=== PATIENT | male | born 1930 | race Caucasian/White ===

== ENCOUNTER 2016-05-19 20:40 | Emergency (ER) | payer MEDICARE, OTHER ==
[~2016-05-19] VITALS: Ht 172.7 cm; Wt 75.0 kg
[~2016-05-19 20:40] MED LIST: ASPI-973 PO; ATOR20TA65 PO; CHOL200047 PO; CYAN10008 PO; DOCU-41 PO; ESOM40CA41 PO; HYDR-3089 PO; LOSA50TA37 PO
[2016-05-19 20:57] VITALS: BP 184/89; PULSE 81; RESP 20; O2SAT 97
[2016-05-19 22:52] LABS: EOSINOPHILS % (AUTO) 2.8 % (0-5); MONOCYTES % (AUTO) 10.1 % (4-12); Mean Corpuscular Hemoglobin 31.7 pg (27.0-35.0); Mean Corpuscular Volume 90.8 fL (81-100); NEUTROPHILS % (AUTO) 76.7 % (40-74); Platelet Count 167 bil/L (150-400)
[2016-05-19 23:11] LABS: Magnesium 2.1 mg/dL (1.6-2.6)
--- NOTE | 2016-05-19 23:12 | ED.REPORT ---
HPI-General Illness Date of Service May 19, 2016 ED Provider: Melecio Barragan MD Pt is an 86 y/o male w/ a hx of HTN, CVA, profound neuropathy, CHF, presenting to the ED c/o myalgias onset yesterday. He c/o associated abdominal pain, fatigue, generalized weakness, constipation. Pt denies dysuria, vomiting, diarrhea, change in cough, LUTZ, sore throat, rhinorrhea. Fever is unknown. Nursing Notes Stated Complaint: WHOLE BODY ACHES Chief Complaint: FLU/Cold Symptoms Nursing Notes Reviewed: Yes Allergies: Coded Allergies: No Known Allergies (Verified Allergy, Unknown, 08/23/15) Scheduled Aspirin (Aspirin) 81 Mg Tablet 81 MG PO DAILY Atorvastatin Calcium (Atorvastatin Calcium) 20 Mg Tablet 20 MG PO DAILY Cholecalciferol (Vitamin D3) (Vitamin D3) 2,000 Unit Capsule 2,000 UNIT PO DAILY Cyanocobalamin (Vitamin B-12) (Vitamin B-12) 1,000 Mcg Tablet 1,000 MCG PO DAILY Losartan Potassium (Losartan Potassium) 50 Mg Tablet 50 MG PO DAILY Scheduled PRN Docusate Sodium (Colace) 100 Mg Capsule 100 MG PO BID PRN PRN For Constipation Esomeprazole Magnesium (Nexium) 40 Mg Capsule.dr 40 MG PO DAILYAC PRN PRN For Dyspepsia or Heartburn Hydrocodone-Acetaminophen 10-300 mg (Hydrocodone-Acetaminophen 10-300 mg) 1 Each Tablet 1-2 TABLET PO Q6H PRN PRN For Pain General Time Seen by MD: 23:09 Chief Complaint Other (myalgias) Hx Obtained From: Patient Arrived By: Walk-in Sudden in Onset?: No Onset Occurred: 1 day ago Symptom Duration: Since onset Quality: Aching (whole body) Severity: Current: Mild Severity: Maximum: Mild Past Medical History Past Medical History 1. Hypertension. 2. CVA/stroke. 3. Gout. 4. Profound neuropathy. 5. CHF Past Surgical History TURP Back surgery L shoulder surgery Smoking History Former Smoker Social History Alcohol Use: Denies alcohol use Drug Use: Denies drug use Other Social History: Ambulatory Status Independent Review of Systems Full Review of Systems Constitutional: Reports: Fatigue, Weakness - generalized Ears / Nose / Throat: Denies: Nasal congestion, Sore throat Respiratory: Denies: Non-productive cough, Shortness of breath GI: Reports: Abdominal pain, Nausea, Denies: Diarrhea, Vomiting Male: Denies Dysuria, Denies Hematuria Musculoskeletal: Reports: Myalgia, Denies: Joint swelling Complete sys rev & neg: except as marked. Physical Exam Vital Signs Vital Signs Date Time Temp Pulse Resp B/P Pulse Ox O2 Delivery O2 Flow Rate FiO2 05/20/16 01:24 37.2 75 18 145/77 94 Room Air 05/19/16 20:57 38.7 81 20 184/89 97 Room Air Initial VS: Reviewed, Vital signs abnormal Head / Eyes: Atraumatic, Normocephalic, PERRL ENT: Mucous membranes moist, Conjunctiva normal, No scleral icterus Neck: Supple, Full range of motion Respiratory: Breath sounds normal, Clear to auscultation, No respiratory distress Cardiovascular: Regular rate & rhythm, Heart sounds normal, Intact distal pulses Extremities: Vascular intact, Neuro intact, No swelling, No tenderness Skin: Warm, Dry, No cyanosis Neurologic: Alert, Oriented, Nonfocal Psychiatric: Mood/affect normal, Behavior normal, Normal thought content General/Constitutional: Awake, Alert, No acute distress, Cooperative, Not toxic appearing Abdomen: Atraumatic, Soft, No guarding, No rebound, No distention, No palpable mass Tenderness/Guarding/Rebound: Positive: Tender LLQ... (Mild) Interpretation & Diagnostics Lab Results Interpretation Result Diagram: 05/19/16223905/19/162239 Test 05/19/16 22:40 White Blood Count 8.1th/mm3 (3.8-10.1) Red Blood Count 4.36mil/mm3 (4.40-5.80) Hemoglobin 13.8g/dL (13.8-17.2) Hematocrit 39.6% (41.0-50.0) Mean Corpuscular Volume 90.8fL (81-100) Mean Corpuscular Hemoglobin 31.7pg (27.0-35.0) Mean Corpuscular Hemoglobin Concent 34.8% (32.0-37.0) Red Cell Distribution Width 12.0% (12.3-15.4) Platelet Count 167bil/L (150-400) Neutrophils (%) (Auto) 76.7% (40-74) Lymphocytes (%) (Auto) 9.3% (14-46) Monocytes (%) (Auto) 10.1% (4-12) Eosinophils (%) (Auto) 2.8% (0-5) Basophils (%) (Auto) 1.0% (0-3) Sodium Level 137mEq/L (134-144) Potassium Level 4.3mEq/L (3.5-5.2) Chloride Level 101mEq/L (97-108) Carbon Dioxide Level 22mmol/L (18-29) Blood Urea Nitrogen 18mg/dL (8-27) Creatinine 1.29mg/dL (0.76-1.27) Estimat Glomerular Filtration Rate 56mL/min (>59) Glucose Level 137mg/dL (60-99) Calcium Level 8.5mg/dL (8.5-10.1) Magnesium Level 2.1mg/dL (1.6-2.6) Total Bilirubin 0.3mg/dL (0.0-1.2) Aspartate Amino Transf (AST/SGOT) 22U/L (0-50) Alanine Aminotransferase (ALT/SGPT) 14U/L (0-44) Alkaline Phosphatase 106U/L (25-160) Total Protein 6.9g/dL (6.4-8.4) Albumin 4.2g/dL (3.4-5.0) Hold Bradford Top Tube Received (Received) CT Abd / Pelvis Interpretation Conclusion: 1. No evidence of colitis. 2. Wall thickening or pericholecystic fluid at the gallbladder fundus. The gallbladder is incompletely distended. Ultrasound as clinically indicated. Radiologist: Cornelius Rose, [id number] Study type: Abdominal CT IV contrast Interpretation / Wet Read by: Interpret - Radiologist Re-Eval/Medical Decision Med Decision/Clinical Course 86-year-old male history of neuropathy, hypertension, CHF presenting with diffuse muscle aches times one day. Vital signs are stable. Fever. Exam is benign other than mild left lower abdominal tenderness. CT abdomen and pelvis showed no acute LLQ pathology. Labs are stable. Patient's abdominal pain resolved while he was here. Possibly viral syndrome. We will discharge home with return precautions. Time of Eval: 00:59 Patient Status: Condition improved, Moderate relief, Pain improved Evaluation: Abdomen soft/non-tender Re-Evaluation/Progress Note: Pt rechecked. Informed pt of plan for treatment. Pt understands and agrees with plan for treatment. F/U instructions and RTER warnings given. All questions addressed. Counseled Regarding: Diagnosis, Lab results, Need for follow-up, When/why to return to ED Discharge & Departure Primary Impression: Viral syndrome Additional Impressions: Abdominal pain Abdominal location: unspecified location Qualified Code: R10.9 - Unspecified abdominal pain Constipation Constipation type: unspecified constipation type Qualified Code: K59.00 - Constipation, unspecified Disposition: Home Discharge Condition All VS Reviewed: Yes Condition: Stable Patient Instructions: Acute Abdominal Pain (ED) Additional Instructions: Your CT scan was normal today. Your labs were also normal. This rules out all dangerous causes for your symptoms. You likely have a virus which is causing them. You should feel better in a few days. Return to the emergency department for high fever, severe pain, persistent vomiting, or for other concerning symptoms. Follow-up with your doctor Saturday or Saturday. Referrals: [facility] Residency Clinic (PCP) Scribe Attestation Portions of this note were transcribed by Camilo Lennon. I, Dr. Barragan, personally performed the history, physical exam and medical decision-making; I reviewed and confirmed the accuracy of the information in the transcribed note. Signed by Roberto Carlos Jimenez, 05/19/16 - [id number] copies to: [facility] Res[facility] Melecio Barragan MD May 19, 2016 23:12 CAMILO LENNON May 19, 2016 23:22
[2016-05-19] MEDS ORDERED: Ondansetron 2 mg/mL 2 mL Inj IVPUSH PRN (23:25)
[2016-05-20 01:24] VITALS: BP 145/77; PULSE 75; RESP 18; O2SAT 94
--- NOTE | 2016-05-20 08:04 | DRSVH ---
PROCEDURE: CT ABDOMEN AND PELVIS WITH CONTRAST ([id number]) INDICATIONS: LLQ pain TECHNIQUE: After the administration of intravenous contrast, 5 mm thick sections acquired from the diaphragm to the symphysis. 5 mm coronal and sagittal reformats were acquired. For radiation dose reduction, the following was used: automated exposure control, adjustment of mA and/or kV according to patient rolan frausto. COMPARISON: [facility], CT, CT ABD PELVIS W CON, 09/20/2015, 10:58. FINDINGS: Image quality: Excellent. ABDOMEN: Lung bases: Lung bases are clear. Heart size is normal. Solid organs: Liver and spleen are normal in size and enhancement. There is soft tissue thickening o f the distal gallbladder fundus which is new when compared with the study dated 09/20/15. Of note, the gallbladder is partially contracted on the current study. Biliary system is non dilated. Pancreas e nhances normally. No adrenal nodules. Kidneys demonstrate normal size and enhancement, without hydr onephrosis. Subcentimeter low density lesions are present within the right renal cortex which are inc ompletely characterized but may represent simple renal cysts. Peritoneum and bowel: Bowel loops demonstrate normal wall thickness and caliber. The appendix is thi n walled and gas filled. No free fluid or air. Nodes and vessels: No retroperitoneal or mesenteric adenopathy by size criteria. Aorta and inferior vena cava are normal in size. There are scattered atheromatous calcifications throughout the aorta and iliac arteries bilaterally. Miscellaneous: No ventral hernias. PELVIS: Genitourinary: Bladder wall thickness is normal. Miscellaneous: No inguinal hernias or adenopathy. Bones: No suspicious bony lesions. No vertebral body compression fractures. There is ankylosis of the thoracolumbar spine. Posterior fixation hardware is intact. IMPRESSION: 1. No acute intra-abdominal findings. Normal appendix. 2. Focal wall thickening of the distal gallbladder fundus. This is a new finding when compared with t he prior study. Acute cholecystitis a neoplasm cannot be excluded. Right upper quadrant ultrasound re commended. These findings are concordant with the overnight interpretation. Dictated by: Miriam Gerardo M.D. on 05/20/2016 at 7:56 Approved by: Miriam Gerardo M.D. on 05/20/2016 at 8:03
== END 2016-05-20 01:26 | disposition home or self-care (01) ==
LOC: SED 20:40
DX: K59.00 Constipation, unspecified (principal); B34.9 Viral infection, unspecified; I10 Essential (primary) hypertension; G62.9 Polyneuropathy, unspecified; I50.9 Heart failure, unspecified; Z87.891 Personal history of nicotine dependence; Z87.39 Personal history of other diseases of the musculoskeletal system and connective tissue; Z86.73 Personal history of transient ischemic attack (TIA), and cerebral infarction without residual deficits; Z79.82 Long term (current) use of aspirin
CPT/HCPCS: 36415; 74177; 80053; 83735; 85025; 96374; 96375; 99284; J2270; J2405; Q9967

== ENCOUNTER 2016-07-02 23:25 | Emergency (ER) | payer MEDICARE, OTHER ==
[~2016-07-02] VITALS: Ht 172.7 cm; Wt 72.7 kg
[2016-07-02 23:30] VITALS: BP 218/87; PULSE 68; RESP 18; O2SAT 97
[2016-07-02 23:49] VITALS: BP 173/88; PULSE 65; RESP 14; O2SAT 98
--- NOTE | 2016-07-02 23:58 | ED.REPORT ---
HPI-General Illness Date of Service Jul 02, 2016 ED Provider: Bonnie Frank MD 86 y/o male with a hx of hypertension, congestive heart failure, and GERD presents to the ED after he recorded a high blood pressure of 218 systolic tonight. Patient states that he generally feels unwell, with some abdominal discomfort. He reports experiencing severe heartburn earlier today, which improved after taking two Nexium tablets. He also complains of nausea but denies vomiting,diarrhea, chest pain, back pain, shoulder pain, and headache. Pt has chronic constipation. He had a bowel movement this morning after taking two Dulcolax tablets. He takes Losartan for his blood pressure. Nursing Notes Stated Complaint: HIGH BLOOD PRESSURE Chief Complaint: General Complaint Nursing Notes Reviewed: Yes Allergies: Coded Allergies: No Known Allergies (Verified Allergy, Unknown, 07/02/16) Scheduled Aspirin (Aspirin) 81 Mg Tablet 81 MG PO DAILY Atorvastatin Calcium (Atorvastatin Calcium) 20 Mg Tablet 20 MG PO DAILY Cholecalciferol (Vitamin D3) (Vitamin D3) 2,000 Unit Capsule 2,000 UNIT PO DAILY Cyanocobalamin (Vitamin B-12) (Vitamin B-12) 1,000 Mcg Tablet 1,000 MCG PO DAILY Losartan Potassium (Losartan Potassium) 50 Mg Tablet 50 MG PO DAILY Scheduled PRN Docusate Sodium (Colace) 100 Mg Capsule 100 MG PO BID PRN PRN For Constipation Esomeprazole Magnesium (Nexium) 40 Mg Capsule.dr 40 MG PO DAILYAC PRN PRN For Dyspepsia or Heartburn Hydrocodone-Acetaminophen 10-300 mg (Hydrocodone-Acetaminophen 10-300 mg) 1 Each Tablet 1-2 TABLET PO Q6H PRN PRN For Pain General Time Seen by MD: 23:57 Chief Complaint Other (High BP) Hx Obtained From: Spouse Arrived By: Walk-in Sudden in Onset?: Yes Onset Occurred: 21 - 23 hours ago Symptom Duration: Since onset Severity: Current: No pain currently Severity: Maximum: No pain Recent Healthcare: No recent doctor visit, No recent hospitalization Similar Sx Previous: No Past Medical History Past Medical History 1. Hypertension. 2. CVA/stroke. 3. Gout. 4. Profound neuropathy. 5. CHF Reports: GERD Past Surgical History TURP Back surgery L shoulder surgery Smoking History Former Smoker Social History Alcohol Use: Denies alcohol use Drug Use: Denies drug use Other Social History: Ambulatory Status Independent Review of Systems Full Review of Systems Constitutional: Reports: Malaise Cardiovascular: Denies: Chest pain GI: Reports: Abdominal pain, Constipation, Nausea, Denies: Diarrhea, Vomiting Male: Denies Dysuria Musculoskeletal: Denies: Back pain, Joint pain Neurologic: Denies: Headache Complete sys rev & neg: except as marked. Physical Exam Vital Signs Vital Signs Date Time Temp Pulse Resp B/P Pulse Ox O2 Delivery O2 Flow Rate FiO2 07/03/16 02:50 36.6 61 15 148/69 96 Room Air 07/03/16 02:13 61 11 167/75 98 Room Air 07/03/16 01:18 60 24 163/64 100 Room Air 07/02/16 23:49 65 14 173/88 98 Room Air 07/02/16 23:30 36.1 68 18 218/87 97 Room Air Initial VS: Reviewed, Vital signs abnormal Head / Eyes: Atraumatic, Normocephalic, PERRL ENT: Mucous membranes moist, Conjunctiva normal, No scleral icterus Neck: Supple, Non-tender, Full range of motion Respiratory: Breath sounds normal, Clear to auscultation, No respiratory distress Cardiovascular: Regular rate & rhythm, Heart sounds normal Abdomen / GI: Soft, Non-tender, No guarding, No rebound Skin: Warm, Dry, No cyanosis Neurologic: Alert, Oriented, Nonfocal Psychiatric: Mood/affect normal, Behavior normal, Normal thought content General/Constitutional: Awake, Alert, Cooperative Lower Extremity / Pelvis / MS: Neurologic intact, Vascular intact Trace extremity edema. Interpretation & Diagnostics Lab Results Interpretation Result Diagram: 07/03/16 0030 07/03/16 0030 Test 07/02/16 23:45 07/03/16 00:30 Hold Urine Received (Received) White Blood Count 7.1th/mm3 (3.8-10.1) Red Blood Count 4.33mil/mm3 (4.40-5.80) Hemoglobin 13.5g/dL (13.8-17.2) Hematocrit 39.6% (41.0-50.0) Mean Corpuscular Volume 91.5fL (81-100) Mean Corpuscular Hemoglobin 31.2pg (27.0-35.0) Mean Corpuscular Hemoglobin Concent 34.1% (32.0-37.0) Red Cell Distribution Width 12.6% (12.3-15.4) Platelet Count 179bil/L (150-400) Neutrophils (%) (Auto) 63.9% (40-74) Lymphocytes (%) (Auto) 21.2% (14-46) Monocytes (%) (Auto) 8.9% (4-12) Eosinophils (%) (Auto) 4.8% (0-5) Basophils (%) (Auto) 0.8% (0-3) Sodium Level 143mEq/L (134-144) Potassium Level 4.6mEq/L (3.5-5.2) Chloride Level 103mEq/L (97-108) Carbon Dioxide Level 24mmol/L (18-29) Blood Urea Nitrogen 16mg/dL (8-27) Creatinine 1.21mg/dL (0.76-1.27) Estimat Glomerular Filtration Rate 60mL/min (>59) Glucose Level 114mg/dL (60-99) Calcium Level 8.9mg/dL (8.5-10.1) Magnesium Level 2.1mg/dL (1.6-2.6) Total Bilirubin 0.4mg/dL (0.0-1.2) Aspartate Amino Transf (AST/SGOT) 19U/L (0-50) Alanine Aminotransferase (ALT/SGPT) 13U/L (0-44) Alkaline Phosphatase 102U/L (25-160) Troponin T 0.010ug/L (0.0-0.011) Total Protein 6.7g/dL (6.4-8.4) Albumin 4.0g/dL (3.4-5.0) Lipase 40U/L (13-60) ECG Interpretation ECG Interpretation: Normal sinus rate 68. Time: 02:07 Interpreted by: ED physician X-Ray Chest Interpretation Chest Xray Interpretation: Impression: No acute cardiopulmonary process. View: Portable Interpretation / Wet Read by: Wet read ED physician CT Chest Interpretation Conclusion: Ascending thoracic aneurysm. No aortic dissection., No evidence of PE. Small bilateral pulmonary nodules, indeterminate followup imaging recommended to confirm stability. Marina Yañez M.D. 07/03/16. 02:14 Study type: CT pulm angiogram Interpretation / Wet Read by: Interpret - Radiologist CT Abd / Pelvis Interpretation Conclusion: No aortic aneurysm or dissection. Suggestion of gastric wall thickening possibly nondistension, acute gastritis or other process could have a smiliar appearance. Colonic diverticulosis. Marina Yañez M.D. 07/03/16. 02:14 Interpretation / Wet Read by: Interpret - Radiologist Re-Eval/Medical Decision Med Decision/Clinical Course The patient presents with general malaise and hypertension, had chest pain earlier in the day. My largest concern with hypertension with aortic dissection , CT reveals he does have an aneurysm but no dissection. The patient was also found to have gastritis seen on CT. His symptoms may be related to gastritis and reflux. He is essentially ruled out for PA given the duration of his pain and negative troponin and EKG. Patient does not show any signs of end organ damage with regard to his blood pressure and his blood pressure came down into the 160s. Source of Hx: Old records Time of Eval: 02:26 Re-Evaluation/Progress Note: Pt rechecked. Discussed lab and imaging results and diagnosis. Informed the pt of the plan to discharge. Pt understands and agrees with plan. F/U instructions and RTER warning given. All questions addressed. Counseled Regarding: Diagnosis, Lab results, Need for follow-up, When/why to return to ED Discharge & Departure Primary Impression: Gastritis Gastritis type: other gastritis Chronicity: chronic Gastritis bleeding: without bleeding Qualified Code: K29.50 - Unspecified chronic gastritis without bleeding Additional Impression: Ascending aortic aneurysm Disposition: Home Discharge Condition All VS Reviewed: Yes Condition: Stable Patient Instructions: Gastritis (ED) Additional Instructions: Keep your appointment with your doctor on Saturday. Let him know about your diagnosis of ascendic aortic aneurysm as it will need to be followed over time. Also discuss your elevated BP so they can make a medication adjustment. Start taking your Nexium daily, you have irritation to your stomach that was seen on your CT scan. Referrals: [facility] Residency Clinic (PCP) Scribe Attestation Portions of this note were transcribed by Jeremy Cannon and Isadora Mathew I, personally performed the history, physical exam and medical decision-making;I reviewed and confirmed the accuracy of the information in the transcribed note. Signed by Jeremy Cannon and Isadora Mathew, Scribe. 07/03/16 0327. copies to: [facility] Residency Clinic Bonnie Frank MD Jul 02, 2016 23:58 Jeremy Cannon Apr 25, 2017 00:11 Isadora Mathew Jul 03, 2016 02:08
[2016-07-03 00:58] LABS: BASOPHILS % (AUTO) 0.8 % (0-3); EOSINOPHILS % (AUTO) 4.8 % (0-5); MONOCYTES % (AUTO) 8.9 % (4-12); Mean Corpuscular Hemoglobin 31.2 pg (27.0-35.0); Mean Corpuscular Volume 91.5 fL (81-100); NEUTROPHILS % (AUTO) 63.9 % (40-74); Platelet Count 179 bil/L (150-400)
[2016-07-03 01:18] VITALS: BP 163/64; PULSE 60; RESP 24; O2SAT 100
[2016-07-03 01:24] LABS: Magnesium 2.1 mg/dL (1.6-2.6); TROPONIN T 0.01 ug/L (0.0-0.011)
[2016-07-03 02:13] VITALS: BP 167/75; PULSE 61; RESP 11; O2SAT 98
[2016-07-03 02:50] VITALS: BP 148/69; PULSE 61; RESP 15; O2SAT 96
--- NOTE | 2016-07-03 09:12 | DRSVH ---
PROCEDURE: X-RAY CHEST ONE VIEW, PORTABLE ([id number]) INDICATIONS: chest pain TECHNIQUE: One view of the chest was acquired. COMPARISON: [facility], CR, XR CHEST 2VW, 01/23/2016, 10:19. FINDINGS: Surgical changes and devices: None. Lungs and pleura: No pleural effusions or pneumothorax. Lungs are clear. Mediastinum: Mediastinal contours appear normal. Heart size is normal. Bones and chest wall: No suspicious bony lesions. Overlying soft tissues appear unremarkable. IMPRESSION: No acute cardiopulmonary disease. Dictated by: Dl Marshall [facility] Interpreted: Enrqiueta Gomez MD on 07/03/2016 at 9:09 Transcribed by: PRASHANTH on 07/03/2016 at 9:11 Approved by: Enriqueta Gomez MD, PhD on 07/03/2016 at 11:27
--- NOTE | 2016-07-03 10:07 | DRSVH ---
PROCEDURE: CT ANG CHEST/ABD W/WO CONTRAST ([id number]) INDICATIONS: chest and epigastric pain TECHNIQUE: Precontrast 5 mm thick sections acquired from the lung apices to the iliac crests. After the adminis tration of intravenous contrast, 3 mm thick sections again acquired from the lung apices to the iliac crests. 3-dimensional maximum intensity projection (MIP) oblique sagittal and coronal reformats wer e then acquired, and/or 3-dimensional volume rendering reformats. For radiation dose reduction, the following was used: automated exposure control. COMPARISON: [facility], CT, CHEST W/O CONTRAST, 01/03/2012, 12:11. [facility] al, CT, ANG CHEST/ABD W/WO CONTRAST (PNL), 09/26/2007, 20:44. FINDINGS: Image quality: Excellent. AORTA: The thoracic aorta demonstrates an approximately 39 mm aneurysmal dilation, unchanged compared to [place] or exam. The abdominal aorta is unremarkable without evidence of aneurysmal dilation, occlusion or he modynamically significant stenosis. Minimal to mild scattered areas of calcification are present sugg estive of atherosclerotic disease.. CHEST: Lungs and pleura: No acute airspace opacities. No pleural effusions or pneumothorax. Central and p eripheral airways are patent and normal in caliber. Unchanged subcentimeter right upper lobe pulmona ry nodules compared to 01/03/12. Mediastinum: Heart size is normal. No pericardial effusion. No mediastinal or hilar adenopathy by size criteria. Central pulmonary arteries are normal in size. Esophagus is normal in caliber. No h iatal hernias. Bones and chest wall: No axillary adenopathy by size criteria. Thyroid gland demonstrates bilateral enlargement, right greater than left with focal areas of calcification and hypoattenuation. Overall appearance is relatively unchanged. No suspicious bony lesions. No vertebral body compression fract ures. ABDOMEN: Vasculature: Celiac trunk and mesenteric arteries are patent. Renal arteries are also patent. Solid organs: Liver and spleen are normal in size. Gallbladder is unremarkable. Biliary system is non dilated. Pancreas enhances normally. No adrenal nodules. Both kidneys are normal in size and e nhancement, without hydronephrosis. Peritoneum and bowel: No free fluid or air. Bowel loops are normal in caliber and wall thickness. Nodes and vessels: No retroperitoneal or mesenteric adenopathy by size criteria. Inferior vena cava is normal in morphology. Bones: No suspicious bony lesions. No vertebral body compression fractures. Miscellaneous: No ventral hernias. IMPRESSION: 1. Stable, aneurysmal dilation of the ascending thoracic aorta. 2. Persistent thyroid enlargement with multiple areas of hypoattenuation in calcification. Thyroid ul trasound may be obtained as clinically indicated for additional evaluation. 3. Unchanged subcentimeter pulmonary nodules compared to 2012, considered likely benign. 4. No evidence of pulmonary embolism. Dictated by: Maryam Chacon M.D. on 07/03/2016 at 9:56 Approved by: Maryam Chacon M.D. on 07/03/2016 at 10:05
== END 2016-07-03 02:51 | disposition home or self-care (01) ==
LOC: SED 23:25
DX: K29.50 Unspecified chronic gastritis without bleeding (principal); I71.2 Thoracic aortic aneurysm, without rupture; K21.9 Gastro-esophageal reflux disease without esophagitis; I11.0 Hypertensive heart disease with heart failure; K59.00 Constipation, unspecified; Z79.82 Long term (current) use of aspirin; Z87.891 Personal history of nicotine dependence; Z86.73 Personal history of transient ischemic attack (TIA), and cerebral infarction without residual deficits
CPT/HCPCS: 36415; 71010; 71275; 74175; 80053; 83690; 83735; 84484; 85025; 93005; 99285; Q9967

== ENCOUNTER 2016-07-21 06:44 | Emergency (ER) | payer MEDICARE, OTHER ==
[~2016-07-21] VITALS: Ht 172.7 cm; Wt 72.7 kg
[2016-07-21 06:45] VITALS: BP 180/76; PULSE 68; RESP 17; O2SAT 98
--- NOTE | 2016-07-21 06:58 | ED.REPORT ---
HPI-General Illness Date of Service July 21, 2016 ED Provider: Raheel Posada DO The pt is a 86 y/o male w/ a hx of hypertension, stroke, and CHF presenting to the ED complaining of chest pain onset 02:00 this morning. He also has abdominal pain, back pain, and reports a BP of 217 when he measured it at 02: 00. The pain began all began at the same time and woke him up this morning. He rates the pain as a 5/10 severity. The pt denies vomiting, fever, diarrhea, nausea, or diaphoresis. He also reports having similar symptoms a month ago and his regular systolic BP being 140. The pt has not taken his blood pressure medication this morning. Nursing Notes Stated Complaint: POSS STROKE Chief Complaint: Male Abdominal Pain Nursing Notes Reviewed: Yes Allergies: Coded Allergies: No Known Allergies (Verified Allergy, Unknown, 07/02/16) Scheduled Amlodipine (Amlodipine) 2.5 Mg Tablet 2.5 MG PO DAILY Aspirin (Aspirin) 81 Mg Tablet 81 MG PO DAILY Atorvastatin Calcium (Atorvastatin Calcium) 20 Mg Tablet 20 MG PO DAILY Cholecalciferol (Vitamin D3) (Vitamin D3) 2,000 Unit Capsule 2,000 UNIT PO DAILY Cyanocobalamin (Vitamin B-12) (Vitamin B-12) 1,000 Mcg Tablet 1,000 MCG PO DAILY Losartan Potassium (Losartan Potassium) 50 Mg Tablet 50 MG PO DAILY Scheduled PRN Docusate Sodium (Colace) 100 Mg Capsule 100 MG PO BID PRN PRN For Constipation Esomeprazole Magnesium (Nexium) 40 Mg Capsule.dr 40 MG PO DAILYAC PRN PRN For Dyspepsia or Heartburn Hydrocodone-Acetaminophen 10-300 mg (Hydrocodone-Acetaminophen 10-300 mg) 1 Each Tablet 1-2 TABLET PO Q6H PRN PRN For Pain General Time Seen by MD: 06:57 Chief Complaint Chest pain Hx Obtained From: Patient Arrived By: Walk-in Sudden in Onset?: Yes Onset Occurred: 5 - 8 hours ago Symptom Duration: Since onset Recent Healthcare: No recent hospitalization, Recent doctor visit Similar Sx Previous: Yes Past Medical History Past Medical History 1. Hypertension. 2. CVA/stroke. 3. Gout. 4. Profound neuropathy. 5. CHF Reports: COPD, GERD Past Surgical History TURP Back surgery L shoulder surgery Smoking History Former Smoker Social History Alcohol Use: Denies alcohol use Drug Use: Denies drug use Other Social History: Good social support, Ambulatory Status Independent Review of Systems Full Review of Systems Constitutional: Denies: Fever Cardiovascular: Reports: Chest pain GI: Reports: Abdominal pain, Denies: Diarrhea, Nausea, Vomiting Musculoskeletal: Reports: Back pain Skin: Denies Diaphoresis Complete sys rev & neg: except as marked. Physical Exam Vital Signs Vital Signs Date Time Temp Pulse Resp B/P Pulse Ox O2 Delivery O2 Flow Rate FiO2 07/21/16 09:59 64 18 149/72 98 Room Air 07/21/16 07:44 56 13 155/62 98 Room Air 07/21/16 06:45 36.1 68 17 180/76 98 Room Air Initial VS: Reviewed General/Constitutional: Awake, Alert Distress / Hydration: Positive: Distress mild Head / Eyes: Atraumatic, Normocephalic ENT: Atraumatic, Airway patent Neck: Atraumatic, Supple, Full range of motion Respiratory / Chest: Atraumatic, Breath sounds NL, Breath sounds = bilat, No respiratory distress, No rales, No rhonchi, No wheezing Cardiovascular: Heart rate NL, Regular rhythm, Heart sounds NL 2+ dorsalis pedis pulses Abdomen: Atraumatic, Soft, Non-tender Back: Atraumatic, Full range of motion Lower Extremity / Pelvis / MS: Atraumatic, Inspection NL, Full range of motion , No edema Skin: Atraumatic, Color NL, No rash, Warm, Dry Psychiatric: Affect NL, Mood NL Interpretation & Diagnostics Lab Results Interpretation Result Diagram: 07/21/16 0725 07/21/16 0725 Test 07/21/16 07:25 White Blood Count 5.9th/mm3 (3.8-10.1) Red Blood Count 4.37mil/mm3 (4.40-5.80) Hemoglobin 13.8g/dL (13.8-17.2) Hematocrit 39.6% (41.0-50.0) Mean Corpuscular Volume 90.6fL (81-100) Mean Corpuscular Hemoglobin 31.6pg (27.0-35.0) Mean Corpuscular Hemoglobin Concent 34.8% (32.0-37.0) Red Cell Distribution Width 12.5% (12.3-15.4) Platelet Count 163bil/L (150-400) Neutrophils (%) (Auto) 66.3% (40-74) Lymphocytes (%) (Auto) 19.7% (14-46) Monocytes (%) (Auto) 8.0% (4-12) Eosinophils (%) (Auto) 4.8% (0-5) Basophils (%) (Auto) 1.0% (0-3) Sodium Level 138mEq/L (134-144) Potassium Level 4.2mEq/L (3.5-5.2) Chloride Level 101mEq/L (97-108) Carbon Dioxide Level 24mmol/L (18-29) Blood Urea Nitrogen 15mg/dL (8-27) Creatinine 1.08mg/dL (0.76-1.27) Estimat Glomerular Filtration Rate 69mL/min (>59) Glucose Level 108mg/dL (60-99) Calcium Level 9.0mg/dL (8.5-10.1) Magnesium Level 2.1mg/dL (1.6-2.6) Total Bilirubin 0.6mg/dL (0.0-1.2) Aspartate Amino Transf (AST/SGOT) 16U/L (0-50) Alanine Aminotransferase (ALT/SGPT) 10U/L (0-44) Alkaline Phosphatase 96U/L (25-160) Troponin T 0.010ug/L (0.0-0.011) Total Protein 6.7g/dL (6.4-8.4) Albumin 4.0g/dL (3.4-5.0) Lipase 40U/L (13-60) Hold Bradford Top Tube Received (Received) ECG Interpretation ECG Interpretation: Rate 59 Normal sinus rhythm Ventricular premature complex No change from ECG done on 07/02/16 Time: 07:33 Interpreted by: ED physician CT Chest Interpretation EXAM: CT angiogram chest CONCLUSION: No evidence of PE or dissection. Mass right lobe of thyroid measuring 3 cm likely represents a goiter. Interpretation / Wet Read by: Interpret - Radiologist CT Abd / Pelvis Interpretation EXAM: CT angiogram abdomen Conclusion: Mild atherosclerotic changes of the aorta. No significant acute abnormality. Interpretation / Wet Read by: Interpret - Radiologist Re-Eval/Medical Decision Med Decision/Clinical Course Overall patient presents with a self-limited episode of chest pain that has resolved. Is associated with hypertension, it does not seem to represent acute coronary syndrome there is no evidence of aortic dissection or unstable aortic aneurysm. His blood pressure has come down to the 140s and he is asymptomatic now. Strongly recommended the patient begin amlodipine 2.5 mg daily and follow-up closely with his PCP. Return and follow-up precautions given. Source of Hx: Old records Time of Eval: 09:29 Re-Evaluation/Progress Note: Rechecked pt. Discussed lab and CT results. Discussed plan for new BP medication. Pt understands and agrees with plan for treatment. F/U instructions and RTER warnings given. All questions addressed. Counseled Regarding: Diagnosis, Lab results, Need for follow-up, When/why to return to ED Discharge & Departure Primary Impression: Chest pain Chest pain type: unspecified Qualified Code: R07.9 - Chest pain, unspecified Disposition: Home Discharge Condition All VS Reviewed: Yes Condition: Stable Additional Instructions: Begin amlodipine. Follow up with your primary care doctor for repeat evaluation. Return to the ER as needed for recurrent or concerning symptoms. Referrals: [facility] (PCP) Scribe Attestation Portions of this note were transcribed by Kaushal Crooks and Ulisses Dick. I, Dr. Melissa Miller personally performed the history, physical exam and medical decision- making; I reviewed and confirmed the accuracy of the information in the transcribed note. Signed by: Bonita Carroll, and [phone]. copies to: [facility] Raheel Posada DO July 21, 2016 06:58 Kaushal Crooks July 21, 2016 07:05 ULISSES DICK July 21, 2016 08:13
[2016-07-21] MEDS ORDERED: LidocaineVisc 2%:Antacid 1:1 10 mL Syringe PO SCH (07:05)
[2016-07-21] MEDS ORDERED: Ondansetron 2 mg/mL 2 mL Inj IVPUSH ONE (07:05)
[2016-07-21 07:40] LABS: EOSINOPHILS % (AUTO) 4.8 % (0-5); Mean Corpuscular Hemoglobin 31.6 pg (27.0-35.0); Mean Corpuscular Volume 90.6 fL (81-100); NEUTROPHILS % (AUTO) 66.3 % (40-74); Platelet Count 163 bil/L (150-400)
[2016-07-21 07:44] VITALS: BP 155/62; PULSE 56; RESP 13; O2SAT 98
[2016-07-21 08:12] LABS: TROPONIN T 0.01 ug/L (0.0-0.011)
[2016-07-21 08:24] LABS: Magnesium 2.1 mg/dL (1.6-2.6)
[2016-07-21] MEDS ORDERED: AMLO2.5T PO (09:34)
[2016-07-21 09:59] VITALS: BP 149/72; PULSE 64; RESP 18; O2SAT 98
--- NOTE | 2016-07-21 11:42 | DRSVH ---
PROCEDURE: CT ANG CHEST/ABD W/WO CONTRAST ([id number]) INDICATIONS: chest/upper abd pain rad to back, Hypertensive TECHNIQUE: Precontrast 5 mm thick sections acquired from the lung apices to the iliac crests. After the adminis tration of intravenous contrast, 3 mm thick sections again acquired from the lung apices to the iliac crests. 3-dimensional maximum intensity projection (MIP) oblique sagittal and coronal reformats wer e then acquired, and/or 3-dimensional volume rendering reformats. For radiation dose reduction, the following was used: automated exposure control. COMPARISON: [facility], CT, ABD/PELVIS W/CON (PNL), 03/10/2012, 12:10. [facility], CT, CT NECK SOFT TISSUE W CON, 11/04/2014, 14:01. [facility], CT, CT ANGIO CHEST ABD, 07/03/2016, 1:46. FINDINGS: Image quality: Excellent. AORTA: Within normal limits. No evidence of aortic dissection or aneurysm. There are scattered atheromatous calcifications. CHEST: Lungs and pleura: No acute consolidation. No pleural effusions or pneumothorax. Central and periph eral airways are patent and normal in caliber. There are unchanged less than 5 mm right upper lobe p ulmonary nodules which appear grossly unchanged Mediastinum: Heart size is normal. No pericardial effusion. No mediastinal or hilar adenopathy by size criteria. Central pulmonary arteries are normal in size. No discrete filling defects within the pulmonary arteries to suggest pulmonary embolism. Esophagus is normal in caliber. No hiatal hernia s. Bones and chest wall: No axillary adenopathy by size criteria. Thyroid gland is enlarged bilaterall y and heterogeneous with bilateral hypodense nodules, grossly unchanged. Further assessment with dedi cated thyroid ultrasound could be performed. . No suspicious bony lesions. No vertebral body compression fractures. ABDOMEN: Vasculature: Celiac trunk and mesenteric arteries are patent. Renal arteries are also patent. Solid organs: Liver and spleen are normal in size. Gallbladder grossly unremarkable. Biliary syste m is non dilated. Pancreas enhances normally. Prominence of the pancreatic duct is noted, which is nonspecific. No adrenal nodules. Both kidneys are normal in size and enhancement, without hydronephr osis. Exophytic left renal lesion is seen, which is grossly unchanged since 03/10/12 Peritoneum and bowel: No free fluid or air. Bowel loops are normal in caliber and wall thickness. Nodes and vessels: No retroperitoneal or mesenteric adenopathy by size criteria. Inferior vena cava is normal in morphology. Bones: No suspicious bony lesions. No vertebral body compression fractures. Miscellaneous: No ventral hernias. IMPRESSION: No evidence of aortic dissection or aneurysm. No pulmonary embolism. Heterogeneous thyroid with bilateral nodules, with the dominant lesion seen on the right. Further ass essment with dedicated thyroid ultrasound can be performed. Dictated by: Braxton Sparks M.D. on 07/21/2016 at 11:33 Approved by: Braxton Sparks M.D. on 07/21/2016 at 11:41
== END 2016-07-21 09:54 | disposition home or self-care (01) ==
LOC: SED 06:44
DX: R07.9 Chest pain, unspecified (principal); I11.0 Hypertensive heart disease with heart failure; I50.9 Heart failure, unspecified; K21.9 Gastro-esophageal reflux disease without esophagitis; Z86.73 Personal history of transient ischemic attack (TIA), and cerebral infarction without residual deficits; Z87.891 Personal history of nicotine dependence; Z79.82 Long term (current) use of aspirin; Z79.899 Other long term (current) drug therapy
CPT/HCPCS: 36415; 71275; 74175; 80053; 83690; 83735; 84484; 85025; 93005; 96374; 96375; 99285; J2270; J2405; Q9967

== ENCOUNTER 2016-08-01 21:04 | Emergency (ER) | payer MEDICARE, OTHER ==
[~2016-08-01] VITALS: Ht 172.7 cm; Wt 72.7 kg
[~2016-08-01 21:04] MED LIST changes: +AMLO2.5T PO
[2016-08-01 21:12] VITALS: BP 170/80; PULSE 60; RESP 18; O2SAT 99
[2016-08-01 22:10] LABS: BASOPHILS % (AUTO) 0.8 % (0-3); EOSINOPHILS % (AUTO) 4.4 % (0-5); MONOCYTES % (AUTO) 9.7 % (4-12); Mean Corpuscular Hemoglobin 31.5 pg (27.0-35.0); Mean Corpuscular Volume 91.4 fL (81-100); NEUTROPHILS % (AUTO) 66.1 % (40-74); Platelet Count 162 bil/L (150-400)
--- NOTE | 2016-08-01 22:21 | ED.REPORT ---
HPI-General Illness Date of Service August 01, 2016 ED Provider: Dr. Mayfield Pt is an 86 y/o male w/ a hx of HTN, CVA, CHF, and COPD, presenting to the ED c/ o dizziness and high blood pressure onset tonight. He recorded a BP of 210 systolic at home today and describes his dizziness as a spinning-sensation which only comes about with head movement. Pt denies any CP, SOB. He was seen here in the ED on July 21 of this year complaining of chest pain. His BP was 217 systolic that day. A cardiac workup was performed and was negative. Additionally, CTA of the chest, abdomen, and pelvis that day were negative. The patient was started on Amlodipine and told to follow-up with his PCP. Nursing Notes Stated Complaint: HIGH BP, DIZZINESS Chief Complaint: General Complaint Nursing Notes Reviewed: Yes Allergies: Coded Allergies: No Known Allergies (Verified Allergy, Unknown, 07/02/16) Scheduled Amlodipine (Amlodipine) 2.5 Mg Tablet 2.5 MG PO DAILY Aspirin (Aspirin) 81 Mg Tablet 81 MG PO DAILY Atorvastatin Calcium (Atorvastatin Calcium) 20 Mg Tablet 20 MG PO DAILY Cholecalciferol (Vitamin D3) (Vitamin D3) 2,000 Unit Capsule 2,000 UNIT PO DAILY Cyanocobalamin (Vitamin B-12) (Vitamin B-12) 1,000 Mcg Tablet 1,000 MCG PO DAILY Losartan Potassium (Losartan Potassium) 50 Mg Tablet 50 MG PO DAILY Scheduled PRN Docusate Sodium (Colace) 100 Mg Capsule 100 MG PO BID PRN PRN For Constipation Esomeprazole Magnesium (Nexium) 40 Mg Capsule.dr 40 MG PO DAILYAC PRN PRN For Dyspepsia or Heartburn Hydrocodone-Acetaminophen 10-300 mg (Hydrocodone-Acetaminophen 10-300 mg) 1 Each Tablet 1-2 TABLET PO Q6H PRN PRN For Pain Meclizine (Bonine) 25 Mg Tab.chew 25 MG PO TIDAC PRN PRN vertigo General Time Seen by MD: 22:24 Chief Complaint Dizziness Hx Obtained From: Patient Arrived By: Walk-in Sudden in Onset?: No Onset Occurred: 1 - 4 hours ago Symptom Duration: Since onset Severity: Current: No pain currently Severity: Maximum: No pain Similar Sx Previous: Yes Past Medical History Past Medical History 1. Hypertension. 2. CVA/stroke. 3. Gout. 4. Profound neuropathy. 5. CHF Reports: COPD, GERD Past Surgical History TURP Back surgery L shoulder surgery Smoking History Former Smoker Social History Alcohol Use: Denies alcohol use Drug Use: Denies drug use Other Social History: Good social support, Ambulatory Status Independent Review of Systems Full Review of Systems Constitutional: Denies: Chills, Fever Respiratory: Denies: Non-productive cough, Shortness of breath Cardiovascular: Denies: Chest pain, Dyspnea on exertion Neurologic: Reports: Dizziness, Spinning sensation, Denies: Focal weakness, Headache, Numbness Physical Exam Vital Signs Vital Signs Date Time Temp Pulse Resp B/P Pulse Ox O2 Delivery O2 Flow Rate FiO2 08/01/16 23:30 35.8 78 16 174/77 96 Room Air 08/01/16 23:13 78 16 174/77 96 Room Air 08/01/16 21:12 35.8 60 18 170/80 99 Room Air Initial VS: Reviewed, Vital signs abnormal Head / Eyes: Atraumatic, Normocephalic, PERRL ENT: Mucous membranes moist, Conjunctiva normal, No scleral icterus Neck: Supple, Full range of motion Respiratory: Breath sounds normal, Clear to auscultation, No respiratory distress Cardiovascular: Regular rate & rhythm, Heart sounds normal, Intact distal pulses Abdomen / GI: Soft, Non-tender, No guarding, No rebound, No distention Extremities: Vascular intact, Neuro intact, No swelling, No tenderness Skin: Warm, Dry, No cyanosis Psychiatric: Mood/affect normal, Behavior normal, Normal thought content General/Constitutional: Awake, Alert, No acute distress, Well appearing, Cooperative, Not toxic appearing BP 167/75 at time of interview Neurologic: Oriented X3, Speech NL, No motor deficits, No sensory deficits, CN II - XII intact, Cerebellar NL, Memory NL Interpretation & Diagnostics Lab Results Interpretation Result Diagram: 08/01/16219908/01/16 220 Test 08/01/16 22:00 08/01/16 22:07 White Blood Count 6.1th/mm3 (3.8-10.1) Red Blood Count 4.41mil/mm3 (4.40-5.80) Hemoglobin 13.9g/dL (13.8-17.2) Hematocrit 40.3% (41.0-50.0) Mean Corpuscular Volume 91.4fL (81-100) Mean Corpuscular Hemoglobin 31.5pg (27.0-35.0) Mean Corpuscular Hemoglobin Concent 34.5% (32.0-37.0) Red Cell Distribution Width 12.3% (12.3-15.4) Platelet Count 162bil/L (150-400) Neutrophils (%) (Auto) 66.1% (40-74) Lymphocytes (%) (Auto) 18.8% (14-46) Monocytes (%) (Auto) 9.7% (4-12) Eosinophils (%) (Auto) 4.4% (0-5) Basophils (%) (Auto) 0.8% (0-3) Sodium Level 142mEq/L (134-144) Potassium Level 4.7mEq/L (3.5-5.2) Chloride Level 103mEq/L (97-108) Carbon Dioxide Level 26mmol/L (18-29) Blood Urea Nitrogen 17mg/dL (8-27) Creatinine 1.10mg/dL (0.76-1.27) Estimat Glomerular Filtration Rate 67mL/min (>59) Glucose Level 137mg/dL (60-99) Calcium Level 9.4mg/dL (8.5-10.1) Magnesium Level 2.2mg/dL (1.6-2.6) Total Bilirubin 0.4mg/dL (0.0-1.2) Aspartate Amino Transf (AST/SGOT) 22U/L (0-50) Alanine Aminotransferase (ALT/SGPT) 11U/L (0-44) Alkaline Phosphatase 103U/L (25-160) Troponin T 0.010ug/L (0.0-0.011) Total Protein 6.9g/dL (6.4-8.4) Albumin 4.1g/dL (3.4-5.0) Hold Bradford Top Tube Received (Received) ECG Interpretation ECG Interpretation: Sinus rhythm rate 60 Multiple PVCs Time: 23:12 Interpreted by: ED physician Re-Eval/Medical Decision Med Decision/Clinical Course 86-year-old presents with vertigo. This is positional and clearly benign positional paroxysmal vertigo. Urbano maneuvers discussed in detail. Pretty material provided. Hypertension intermittent. He had a stress response at home with elevated blood pressure in the 210/100 range. This is resolved with observation here. Discussed this with him at some length also. No indication of any acute issues. Discharged home for follow-up with PCP. Source of Hx: Old records Time of Eval: 23:13 Patient Status: Condition improved Re-Evaluation/Progress Note: Pt rechecked. Informed pt of plan for treatment. Pt understands and agrees with plan for treatment. F/U instructions and RTER warnings given. All questions addressed. Counseled Regarding: Diagnosis, Lab results, Need for follow-up, When/why to return to ED Discharge & Departure Primary Impression: Benign paroxysmal positional vertigo Laterality: unspecified laterality Qualified Code: H81.10 - Benign paroxysmal vertigo, unspecified ear Additional Impression: Hypertension Hypertension type: essential hypertension Qualified Code: I10 - Essential ( primary) hypertension Disposition: Home Discharge Condition All VS Reviewed: Yes Condition: Stable Patient Instructions: Benign Paroxysmal Positional Vertigo (ED), Chronic Hypertension (ED) Additional Instructions: Your blood pressure has responded to rest and observation, as is typical. Unless your blood pressure is persistently above 200, over a one half hour to one hour period, the initial response should be to lie down and rest, and recheck in half an hour to an hour. If it remains above 200, and return any time. Return promptly if you develop chest pain, shortness of breath, or other new symptoms. The whirling dizziness is all vertigo. Your symptoms are positional and likely related to your inner ear. See the enclosed information about the usual cause of vertigo. There are positional exercises you can do they can reduce this substantially. (Urbano maneuver) These are detailed in the printed information. Referrals: Wally Rolon MD Attestation Portions of this note were transcribed by Camilo Lennon. I, Dr. Posada personally performed the history, physical exam and medical decision-making; I reviewed and confirmed the accuracy of the information in the transcribed note. Signed by Roberto Carlos Jimenez, 08/01/16 - [id number] copies to: Wally Rolon MD, Christopher W MD August 01, 2016 22:21 CAMILO LENNON August 01, 2016 22:29
[2016-08-01 22:30] LABS: TROPONIN T 0.01 ug/L (0.0-0.011)
[2016-08-01 22:41] LABS: Magnesium 2.2 mg/dL (1.6-2.6)
[2016-08-01] MEDS ORDERED: MECL-114 PO (23:07)
[2016-08-01 23:13] VITALS: BP 174/77; PULSE 78; RESP 16; O2SAT 96
[2016-08-01 23:30] VITALS: BP 174/77; PULSE 78; RESP 16; O2SAT 96
== END 2016-08-01 23:31 | disposition home or self-care (01) ==
LOC: SED 21:04
DX: H81.10 Benign paroxysmal vertigo, unspecified ear (principal); I11.0 Hypertensive heart disease with heart failure; I50.9 Heart failure, unspecified; J44.9 Chronic obstructive pulmonary disease, unspecified; K21.9 Gastro-esophageal reflux disease without esophagitis; Z86.73 Personal history of transient ischemic attack (TIA), and cerebral infarction without residual deficits; Z79.82 Long term (current) use of aspirin; Z87.891 Personal history of nicotine dependence